=== PATIENT | male | born 1970 | race American Indian/Alaskan Native ===

== ENCOUNTER 2019-07-09 11:27 | Emergency (ER) | payer OTHER ==
[2019-07-09 11:43] VITALS: BP 178/102
--- NOTE | 2019-07-09 12:44 | XRay Report ---
CHEST 2 VIEWS INDICATION: Chest Pain. COMPARISON: none FINDINGS: Support devices: None. Heart: Within normal limits. Lungs: No acute air space or interstitial disease. Pleura: No significant pleural effusion. No pneumothorax. Additional findings: None. IMPRESSION: 1. No acute findings. Signer Name: Oral Serna MD Signed: 07/09/2019 12:40 PM Workstation Name: [email or web address]
== END 2019-07-09 14:42 | disposition home or self-care (01) ==
LOC: ED 11:27
DX: J00 Acute nasopharyngitis [common cold] (principal); Z53.21 Procedure and treatment not carried out due to patient leaving prior to being seen by health care provider
CPT/HCPCS: 71046; 93005; 93010; 99283